=== PATIENT | male | born 1990 | race Caucasian/White ===

== ENCOUNTER 2018-05-06 13:38 | Emergency (ER) | payer OTHER ==
[2018-05-06 13:55] VITALS: BMI 17.2
[2018-05-06 14:02] VITALS: TEMP 98.7; O2SAT 100
[2018-05-06] MEDS ORDERED: Sodium Chloride 0.9% 1,000 ML IV ONE (14:55)
[2018-05-06] MEDS ORDERED: Sodium Chloride 0.9% 1,000 ML ONE (15:05)
[2018-05-06 15:25] LABS: BASO % 0.2 % (0.0-2.0); EOS % 0.1 % (0.0-4.0); HEMOGLOBIN 13.6 g/dL (12.0-18.0); LYMPH # 0.9 K/uL (1.0-4.3); LYMPH % 6.6 % (20.0-40.0); MEAN CELL VOLUME 85.8 fL (80.0-94.0); MEAN CORPUSCULAR HEMOGLOBIN 28.5 pg (27.0-31.0); MEAN CORPUSCULAR HGB CONC 33.2 g/dL (33.0-37.0); MEAN PLATELET VOLUME 9.3 fL (7.2-11.7); MONO # 0.5 K/uL (0.0-0.8); MONO % 3.9 % (0.0-10.0); NEUT % 89.2 % (50.0-75.0); NRBC % 0.1 % (0.0-2.0); PLATELET COUNT 300 K/uL (130-400); RBC 4.78 Mil/uL (4.40-5.90); RED CELL DISTRIBUTION WIDTH 13.3 % (11.5-14.5); WHITE BLOOD COUNT 13.5 K/uL (4.8-10.8)
[2018-05-06 15:38] LABS: ALB/GLOB RATIO 1.8 (1.0-2.1); ALBUMIN 4.8 g/dL (3.5-5.0); ALT/SGPT 26 U/L (21-72); AST/SGOT 23 U/L (17-59); BLOOD UREA NITROGEN 7 mg/dL (9-20); CALCIUM 8.3 mg/dl (8.6-10.4); GFR NON-AFRICAN AMERICAN > 60; LIPASE 47 U/L (23-300)
[2018-05-06 15:43] LABS: SQUAMOUS EPITHIAL < 1 /hpf (0-5); URINE AMORPHOUS SEDIMENT OCC /ul (<OCC); URINE BILIRUBIN NEGATIVE (NEGATIVE); URINE BLOOD 1+ (NEGATIVE); URINE CLARITY Hazy (Clear); URINE COLOR Yellow (YELLOW); URINE GLUCOSE (UA) NORMAL (Normal); URINE LEUKOCYTE ESTERASE NEG Leu/uL (Negative); URINE PROTEIN 1+ mg/dL (NEGATIVE); URINE TRIPLE PHOSPHATE CRYSTAL RARE /hpf (<OCC); URINE UROBILINOGEN NORMAL mg/dL (0.2-1.0)
[2018-05-06 15:52] LABS: BANDS 1 % (0-2); LYMPHOCYTE 6 % (20-40); MONOCYTE 2 % (0-10); NEUTROPHIL 91 % (50-75); PLATELET ESTIMATE NORMAL (NORMAL); TOTAL CELLS COUNTED 100
--- NOTE | 2018-05-06 16:25 | CT ---
PROCEDURE: CT Abdomen and Pelvis without Oral or IV contrast. HISTORY: RIGHT FLANK PAIN, R/O KIDNEY STONE COMPARISON: None available. TECHNIQUE: Contiguous axial images of the abdomen and pelvis. No oral or IV contrast administered. Coronal and Sagittal reformats generated and reviewed. Radiation dose: Total exam DLP = 425.95 mGy-cm. This CT exam was performed using one or more of the following dose reduction techniques: Automated exposure control, adjustment of the mA and/or kV according to patient size, and/or use of iterative reconstruction technique. FINDINGS: There is limited evaluation of the solid organs without the administration of IV contrast. LOWER THORAX: The lung bases appear clear. Visualized portions of the heart appear within normal limits of size. There is no visible pleural effusion or pneumothorax. LIVER: Unremarkable unenhanced appearance. GALLBLADDER AND BILE DUCTS: Unremarkable unenhanced appearance. PANCREAS: Unremarkable unenhanced appearance. SPLEEN: Unremarkable unenhanced appearance. ADRENALS: Unremarkable unenhanced appearance. KIDNEYS AND URETERS: 4 mm proximal right ureteral calculus (series 3, image 104); proximal hydroureter/hydronephrosis. Additional nonobstructing 3 mm right renal calculus noted. No left-sided hydronephrosis or obstructing calculus identified. BLADDER: Under distended urinary bladder wall appears thickened. REPRODUCTIVE: Unremarkable. APPENDIX: The appendix appears within normal limits of caliber. No secondary signs of acute appendicitis. BOWEL: The stomach is nondistended. Lack of oral contrast limits evaluation for bowel pathology. The bowel loops appear within normal limits of caliber without evidence of intestinal obstruction. PERITONEUM: No significant free fluid. No definite free air. LYMPH NODES: No bulky lymphadenopathy identified. VASCULATURE: No significant atherosclerotic calcification of the aorta identified. No aortic aneurysm. BONES: No acute osseous abnormality is detected. OTHER FINDINGS: Tiny fat containing umbilical hernia. IMPRESSION: 4 mm proximal right ureteral calculus (series 3, image 104); proximal hydroureter/hydronephrosis. Additional nonobstructing 3 mm right renal calculus noted. No left-sided hydronephrosis or obstructing calculus identified. Under distended urinary bladder wall appears thickened. Recommend correlation with urinalysis.
--- NOTE | 2018-05-06 16:43 | C.PDOC ---
History Of Present Illness Patient is a 27 year old male, with a PMHx of kidney stones, who presents to the ED for evaluation of constant nonradiating right sided flank pain that began at 0600 today. Patient states that the pain is similar to the kidney stones he had in the past. He denies any CP, SOB, nausea, vomiting, diarrhea, dysuria, or hematuria. Time Seen by Provider: 05/06/18 14:26 Chief Complaint (Nursing): Abdominal Pain History Per: Patient History/Exam Limitations: no limitations Onset/Duration Of Symptoms: Hrs Current Symptoms Are (Timing): Still Present (6am) Location Of Pain/Discomfort: Other (right sided flank ) Quality Of Discomfort: "Pain" Associated Symptoms: denies: Nausea, Vomiting, Diarrhea, Urinary Symptoms Recent travel outside of the [place]: No Additional History Per: Patient Past Medical History Reviewed: Historical Data, Nursing Documentation, Vital Signs Vital Signs: Last Vital Signs Temp 98.7 F 05/06/18 13:55 Pulse 96 H 05/06/18 13:55 Resp 18 05/06/18 13:55 BP 146/95 H 05/06/18 13:55 Pulse Ox 100 05/06/18 13:55 - Medical History PMH: Kidney Stones Surgical History: No Surg Hx Family History: States: Unknown Family Hx - Social History Hx Alcohol Use: No Hx Substance Use: No - Immunization History Hx Tetanus Toxoid Vaccination: No Hx Influenza Vaccination: No Hx Pneumococcal Vaccination: No Review Of Systems Cardiovascular: Negative for: Chest Pain Respiratory: Negative for: Shortness of Breath Gastrointestinal: Negative for: Nausea, Vomiting, Diarrhea Genitourinary: Negative for: Dysuria, Hematuria Musculoskeletal: Positive for: Other (right sided flank pain) Physical Exam - Physical Exam Appears: Non-toxic, Other (in mild pain ) Skin: Normal Color, Warm, Dry Head: Atraumatic, Normacephalic Eye(s): bilateral: Normal Inspection Oral Mucosa: Moist Neck: Supple Cardiovascular: Rhythm Regular, No Murmur Respiratory: Normal Breath Sounds, No Rales, No Rhonchi, No Wheezing Gastrointestinal/Abdominal: Soft, No Tenderness, No Guarding, No Rebound Back: CVA Tenderness (right ) Extremity: Normal ROM Neurological/Psych: Oriented x3, Normal Speech, Normal Cognition ED Course And Treatment - Laboratory Results Result Diagrams: 05/06/18 15:18 05/06/18 15:18 Lab Results: Total Bilirubin 0.8 mg/dL (0.2-1.3) 05/06/18 15:18 AST 23 U/L (17-59) 05/06/18 15:18 ALT 26 U/L (21-72) 05/06/18 15:18 Alkaline Phosphatase 80 U/L (38-126) 05/06/18 15:18 Total Protein 7.6 g/dL (6.3-8.3) 05/06/18 15:18 Albumin 4.8 g/dL (3.5-5.0) 05/06/18 15:18 Globulin 2.7 gm/dL (2.2-3.9) 05/06/18 15:18 Albumin/Globulin Ratio 1.8 (1.0-2.1) 05/06/18 15:18 Lipase 47 U/L (23-300) 05/06/18 15:18 Urine Color Yellow (YELLOW) 05/06/18 15:10 Urine Clarity Hazy (Clear) 05/06/18 15:10 Urine pH 9.0 (5.0-8.0) 05/06/18 15:10 Ur Specific [place] 1.015 (1.003-1.030) 05/06/18 15:10 Urine Protein 1+ mg/dL (NEGATIVE) H 05/06/18 15:10 Urine Glucose (UA) Normal mg/dL (Normal) 05/06/18 15:10 Urine Ketones Negative mg/dL (NEGATIVE) 05/06/18 15:10 Urine Blood 1+ (NEGATIVE) H 05/06/18 15:10 Urine Nitrate Negative (NEGATIVE) 05/06/18 15:10 Urine Bilirubin Negative (NEGATIVE) 05/06/18 15:10 Urine Urobilinogen Normal mg/dL (0.2-1.0) 05/06/18 15:10 Ur Leukocyte Esterase Neg Richadr/uL (Negative) 05/06/18 15:10 Urine RBC (Auto) 16 /hpf (0-3) H 05/06/18 15:10 Ur Squamous Epith Cells < 1 /hpf (0-5) 05/06/18 15:10 Triple Phos Crystals Rare /hpf (<OCC) 05/06/18 15:10 Amorphous Sediment Occ /ul (<OCC) H 05/06/18 15:10 O2 Sat by Pulse Oximetry: 100 (on RA) Pulse Ox Interpretation: Normal - CT Scan/US Abdomen/Pelvis Other Rad Studies (CT/US): Read By Radiologist, Radiology Report Reviewed CT/US Interpretation: FINDINGS: There is limited evaluation of the solid organs without the administration of IV contrast. LOWER THORAX: The lung bases appear clear. Visualized portions of the heart appear within normal limits of size. There is no visible pleural effusion or pneumothorax. LIVER: Unremarkable unenhanced appearance. GALLBLADDER AND BILE DUCTS: Unremarkable unenhanced appearance. PANCREAS: Unremarkable unenhanced appearance. SPLEEN: Unremarkable unenhanced appearance. ADRENALS: Unremarkable unenhanced a ppearance. KIDNEYS AND URETERS: 4 mm proximal right ureteral calculus (series 3, image 104); proximal hydroureter/hydronephrosis. Additional nonobstructing 3 mm right renal calculus noted. No left-sided hydronephrosis or obstructing calculus identified. BLADDER: Under distended urinary bladder wall appears thickened. REPRODUCTIVE: Unremarkable. APPENDIX: The appendix appears within normal limits of caliber. No secondary signs of acute appendicitis. BOWEL: The stomach is nondistended. Lack of oral contrast limits evaluation for bowel pathology. The bowel loops appear within normal limits of caliber without evidence of intestinal obstruction. PERITONEUM: No significant free fluid. No definite free air. LYMPH NODES: No bulky lymphadenopathy identified. VASCULATURE: No significant atherosclerotic calcification of the aorta identified. No aortic aneurysm. BONES: No acute osseous abnormality is detected. OTHER FINDINGS: Tiny fat containing umbilical hernia. IMPRESSION: 4 mm proximal right ureteral calculus (series 3, image 104); proximal hydroureter/hydronephrosis. Additional nonobstructing 3 mm right renal calculus noted. No left-sided hydronephrosis or obstructing calculus identified. Under distended urinary bladder wall appears thickened. Recommend correlation with urinalysis. Progress Note: CAT A/P, Bloodwork, Urine Culture, Urinalysis ordered. Toradol 30mg IVP, IV Fluids, Flomax 0.4mg PO given. Upon reassessment, patient felt better and was stable for discharge. Disposition Counseled Patient/Family Regarding: Studies Performed, Diagnosis, Need For Followup, Rx Given - Disposition Referrals: Nga Ge MD [Staff Provider] - Disposition: HOME/ ROUTINE Disposition Time: 16:45 Condition: STABLE Additional Instructions: FOLLOW UP WITH UROLOGY WITHIN 1 WEEK DRINK PLENTY OF WATER USE PAIN MEDICATION NEEDED RETURN TO ER IF YOUR SYMPTOMS WORSEN Prescriptions: Hydrocodone/Acetaminophen [Hydrocodone-Acetamin 5-325 mg] 1 each PO Q6 PRN #15 tablet PRN Reason: PAIN Tamsulosin [Flomax] 0.4 mg PO DAILY #5 cap Instructions: Kidney Stones (DC), Renal Colic (DC) Forms: [employer] ([place] Citizen) Print Language: LATVIAN - Clinical Impression Clinical Impression: Kidney stone on right side, Renal colic on right side - Scribe Statement The provider has reviewed the documentation as recorded by the William Menard All medical record entries made by the William were at my direction and personally dictated by me. I have reviewed the chart and agree that the record accurately reflects my personal performance of the history, physical exam, medical decision making, and the department course for this patient. I have also personally directed, reviewed, and agree with the discharge instructions and disposition.
[2018-05-06 17:17] VITALS: BP 128/84; PULSE 90; RESP 16
== END 2018-05-06 17:30 | disposition home or self-care (01) ==
LOC: C.ER 13:38
DX: N20.0 Calculus of kidney (principal)
CPT/HCPCS: 74176; 80053; 81001; 83690; 85025; 96361; 96374; 99284; J1885; J7030